=== PATIENT | female | born 1965 | race Caucasian/White ===

== ENCOUNTER 2019-11-11 12:13 | Outpatient (CLI) | payer BC ==
--- NOTE | 2019-11-11 20:37 | RAD ---
RIGHT ANKLE THREE VIEWS: 11/11/19 There is considerable soft tissue swelling around the ankle, more medially than laterally. The joint space appears normal. The bones appear normal. IMPRESSION: No acute finding. POS: HOME
== END 2019-11-11 12:14 | disposition home or self-care (01) ==
LOC: BURRAD 12:13
PROVIDERS: ATTEND Family Medicine
DX: M25.571 Pain in right ankle and joints of right foot (principal); G89.29 Other chronic pain